=== PATIENT | female | born 1975 | race African-American/Black ===

== ENCOUNTER 2017-03-12 10:26 | Outpatient (CLI) | payer BC ==
--- NOTE | 2017-03-12 13:17 | MRI ---
MRI CERVICAL SPINE NONCONTRAST: Date: 03/12/17 HISTORY: 41-year-old female with cervical radiculopathy, M54.12. Cervicalgia radiating to left shoulder with h ypesthesia of the left digits. COMPARISON: None. FINDINGS: There are bilateral thyroid nodules, at least two on the right, each on the order of 1.2 cm, and at l east one large one on the left, that measures approximately 3 x 2.5 x 4 cm, and at least one at the i sthmus. All have heterogeneously mixed T2-hyperintense and T2-hypointense parenchyma, and all appear similar. The vertebral body heights are maintained. There is no major bone marrow signal abnormality. No Chiar i I malformation. The cervical spinal cord is normal in size and signal. Slight reversal of cervical curvature. There are sclerotic changes involving the left T1-2 facet complex, with low signal intensi ty on all pulse sequences. There are no high grade degenerative facet changes in the cervical spine p mica. Discogenic degenerative changes are mild at the mid and lower cervical spine. There is no high grade central spinal canal stenosis at any level. There is no neural foraminal stenosis at any level . No cord impingement or nerve root impingement at any level. There is asymmetrically slightly thicke duane soft tissues with moderate T2 hyperintensity at the right anterior aspect of the epidural space f rom the upper C2 level to the lower C4 level. Etiology and significance is uncertain (best seen on ax ial T2-weighted images). This does not contact the spinal cord and does not cause significant spinal canal stenosis. IMPRESSION: 1. Sclerotic changes involving the left T1-2 facet joint. This is assumed to represent degenerative changes, but this is uncertain. 2. Mild cervical spondylosis. 3. No major pathology of the cervical spine identified. 4. Multinodular goiter. POS: [facility]
== END 2017-03-12 10:27 | disposition home or self-care (01) ==
LOC: TBSIIMAG 10:26
PROVIDERS: ATTEND Neurological Surgery
DX: M47.22 Other spondylosis with radiculopathy, cervical region (principal); E04.2 Nontoxic multinodular goiter
CPT/HCPCS: 72141